=== PATIENT | female | born 1970 | race Caucasian/White ===

== ENCOUNTER 2020-01-14 06:56 | Day surgery (SDC) | payer OTHER ==
[~2020-01-14 06:56] MED LIST: Lidocaine 1%/Sod Bicarbonate in NS 8.4% 1 ML Syringe IDERM PRN; Sodium Chloride 0.9% 10 ML Syringe FLUSH PRN
[2020-01-14] MEDS ORDERED: Bupivacaine 0.5% 30 ML SDV ONE (07:10)
[2020-01-14] MEDS: Lactated Ringers 1,000 ML IV SCH ×2 (07:15→13:44)
[2020-01-14] MEDS ORDERED: Propofol 200 MG/20 ML SDV ONE ×2 (07:36→08:52)
[2020-01-14] MEDS ORDERED: fentaNYL 100 MCG/2 ML SDV ONE (07:37)
[2020-01-14] MEDS ORDERED: Midazolam 1 MG/ML 2 ML SDV ONE (07:37)
[2020-01-14] MEDS ORDERED: Lidocaine 1% 4 ML ONE (07:38)
--- NOTE | 2020-01-14 07:44 | PCM.OPNOTE ---
- General Post-Op/Procedure Note Date of Surgery/Procedure: 01/14/20 Operative Procedure(s): Laparoscopic assisted vaginal hysterectomy Findings: SVE with mobile uterus c/w 14 wk size. Intraabdominal evaluation with bulbous uterus c/w known fibroid. Normal appearance of the fallopian tubes and ovaries. Final weight of uterus 354 grams. Pre Op Diagnosis: Fibroid uterus. Irregular bleeding / discharge Post-Op Diagnosis: Same Anesthesia Technique: General ET Tube Primary Surgeon: Nelly Brambila Secondary Surgeon: Loren Galindo Anesthesia Provider: Madeline Higuera Reason Block Stacker Was Necessary: Speed, safety of procedure Pathology: Cervix, uterus, and fallopian tubes sent to pathology. Fluid Replacement, Intraop: 2,300 Output, Urine Amount: 400 EBL in mLs: 100 Complications: None Condition: Good Free Text/Narrative:: The risks, benefits, indications, potential complications, and alternatives were explained to the patient and informed consent obtained. The patient was taken to the Operating Room where general anesthesia was induced without complication. The patient was placed in dorsal lithotomy with Fab Stirrups and an exam under anesthesia revealed the findings detailed above. The patient was then prepped and draped in the usual sterile fashion. A sterile bivalve speculum was placed into the vagina and the anterior lip of the cervix was grasped with a single tooth tenaculum. IUD removed. Next a DOCUSYS uterine manipulator was placed to allow uterine manipulation throughout the procedure. The speculum and single tooth tenaculum were removed from the vagina. A Rodriguez catheter was placed in sterile fashion. Attention was then turned to the patients abdomen where a Veress needle was ca refully introduced into the peritoneal cavity while tenting the abdominal wall. Intraperitoneal placement was confirmed by free flow of saline into the abdomen from a syringe open to gravity and with a low intraabdominal pressure with insufflation of C02 gas on low flow. The gas was increased to high flow and a pneumoperitoneum was obtained with C02 gas to a pressure of 15 mm Hg. A 5 mm skin incision was made in a vertical fashion in the umbilical fold and a 5 mm blunt trocar was inserted into the abdomen with direct visualization of the laparoscope through the clear view trocar lens. 5 mm skin incisions were made in both the left and right lower quadrants approximately 10 cm lateral and 3 cm inferior to the umbilicus. 5 mm blunt trocars were inserted into the abdomen under direct visualization with care to avoid the abdominal wall vasculature. A blunt probe and grasper were inserted through the accessory ports and a survey of the abdomen revealed the findings detailed above. The right fallopian tube was elevated with the blunt graspers at the fimbriated end. The LigaSure was used to grasp, elevate, cauterize and transect the mesosalpingx from the fimbriated end toward the uterus to the level of the round ligament. The fallopian tube was then amputated with the Ligasure and removed through a 5 mm port. The round ligament on the right was then elevated, cauterized, and transected with the LigaSure. Hemostasis was noted. Next, the vesicouterine peritoneum was elevated gently with a blunt grasper and the LigaSure and blunt dissection were used dissect the vesicouterine peritoneum to make a bladder flap. Two more small bites along the right side of the uterus were made with the Ligasure to skeletonize the uterine artery. Hemostasis was noted. The exact same procedure was carried out on the left. The CO2 gas was turned off and the laparoscope was removed. Attention was then turned to the vaginal portion of the procedure. A short weighted speculum was placed in the vagina, and the cervix was grasped with a single tooth tenaculum. The cervix was injected circumferentially with about 15 cc of 1% lidocaine with dilute epinephrine. The cervix was then circumfere ntially incised with a scalpel. A Raytec was used to bluntly dissect the cervix circumferentially until an avascular plane was obtained. The posterior cul-de-sac was entered sharply without difficulty. A 0-Vicryl pop-off suture was placed at six o'clock to include the posterior vaginal mucosa and posterior peritoneum. This stitch was tagged with a straight clamp to help with vaginal cuff closure at the end of the case. The short weighted speculum was replaced by the long weighted speculum. The uterosacral ligaments were grasped on either side with the LigaSure, cauterized, and transected. Hemostasis was assured. The bladder was dissected off the pubovesical cervical fascia anteriorly with a sponge and blunt dissection. The anterior cul-de-sac was then entered sharply without difficulty. The cardinal ligaments were then serially clamped on both sides with the LigaSure, cauterized, and transected. The uterine arteries were then clamped, cauterized, and transected. The fundus and adnexa were confirmed to be free of any further peritoneal attachments and then were pulled out through the vagina. The posterior peritoneum was closed with a running, locked 0 Vicryl suture. The vaginal cuff was closed with two separate 0-Vicryl suture started at either apex and run towards the midline. An additional figure of eight suture was placed at right cuff angle to reapproximate the cuff further. Attention was then again turned to the abdomen. All members of the surgical team changed gloves. The laparoscope was again inserted and the abdomen was again insufflated with CO2. The pedicles were again visualized. Irrigation of the pedicles was performed. Bull seal was placed along the vaginal cuff. Hemostasis was confirmed. The patient was taken out of Trendelenberg position. The accessory trocars were removed under direct visualization. The pneumoperitoneum was allowed to escape. The umbilical trocar was removed and lastly the camera was removed from the abdomen under direct visualization to confirm no herniation into the port site. All skin incisions were re- approximated with 4-0 Monocryl and sealed with Dermabond. Hemostasis was noted. A total of 10 cc of 0.25% Marcaine was injected into the subcutaneous tissues surrounding the skin incisions for local anesthesia. All sponge, lap, needle, and instrument counts were correct x 2. The patient tolerated the procedure well and there were no complications.
--- NOTE | 2020-01-14 07:53 | PCM.PREANE ---
Preanesthetic Assessment - Procedure Proposed Procedure: laparoscopic assisted vaginal hysterectomy - Anesthesia/Transfusion/Family Hx Anesthesia History: Prior Anesthesia Reaction (long wake ups per patient, no other issues) Family History of Anesthesia Reaction: No Transfusion History: No Prior Transfusion(s) Intubation History: Unknown - Review of Systems General: No Symptoms Pulmonary: No Symptoms Cardiovascular: No Symptoms Gastrointestinal: No Symptoms Neurological: No Symptoms Other: Reports: Thyroid Problems, Depression, Anxiety - Physical Assessment NPO Status Date: 01/13/20 NPO Status Time: 21:00 Vital Signs: Last Vital Signs Temp 36.3 C 01/14/20 07:05 Pulse 79 01/14/20 07:05 Resp 16 01/14/20 07:05 BP 127/75 01/14/20 07:05 Pulse Ox 99 01/14/20 07:05 Height: 1.7 m Weight: 59.874 kg ASA Class: 2 Mental Status: Alert & Oriented x3 Airway Class: Mallampati = 1 Dentition: Reports: Normal Dentition Thyro-Mental Finger Breadths: 3 Mouth Opening Finger Breadths: 4 ROM/Head Extension: Full Lungs: Clear to Auscultation, Normal Respiratory Effort Cardiovascular: Regular Rate, Regular Rhythm - Lab Values: Laboratory Last Values WBC 6.27 K/mm3 (3.98-10.04) 01/14/20 07:15 RBC 4.84 M/mm3 (3.98-5.22) 01/14/20 07:15 Hgb 14.9 gm/dl (11.2-15.7) 01/14/20 07:15 Hct 44.7 % (34.1-44.9) 01/14/20 07:15 MCV 92.4 fl (79.4-94.8) D 01/14/20 07:15 MCH 30.8 pg (25.6-32.2) 01/14/20 07:15 MCHC 33.3 g/dl (32.2-35.5) 01/14/20 07:15 RDW Std Deviation 42.6 fL (36.4-46.3) 01/14/20 07:15 Plt Count 205 K/mm3 (182-369) 01/14/20 07:15 MPV 12.0 fl (9.4-12.3) 01/14/20 07:15 Neut % (Auto) 62.4 % (34.0-71.1) 01/14/20 07:15 Lymph % (Auto) 24.9 % (19.3-51.7) 01/14/20 07:15 [place] % (Auto) 8.8 % (4.7-12.5) 01/14/20 07:15 Eos % (Auto) 3.0 (0.7-5.8) 01/14/20 07:15 Baso % (Auto) 0.6 % (0.1-1.2) 01/14/20 07:15 Neut # (Auto) 3.91 K/mm3 (1.56-6.13) 01/14/20 07:15 Lymph # (Auto) 1.56 K/mm3 (1.18-3.74) 01/14/20 07:15 [place] # (Auto) 0.55 K/mm3 (0.24-0.36) H 01/14/20 07:15 Eos # (Auto) 0.19 K/mm3 (0.04-0.36) 01/14/20 07:15 Baso # (Auto) 0.04 K/mm3 (0.01-0.08) 01/14/20 07:15 Sodium 138 mEq/L (136-145) 01/14/20 07:15 Potassium 3.8 mEq/L (3.5-5.1) 01/14/20 07:15 Chloride 103 mEq/L (98-107) 01/14/20 07:15 Carbon Dioxide 26 mEq/L (21-32) 01/14/20 07:15 Anion Gap 12.8 (5-15) 01/14/20 07:15 BUN 17 mg/dL (7-18) 01/14/20 07:15 Creatinine 1.0 mg/dL (0.55-1.02) 01/14/20 07:15 Est Cr Clr Drug Dosing 65.03 mL/min 01/14/20 07:15 Estimated GFR (MDRD) 59 mL/min (>60) 01/14/20 07:15 BUN/Creatinine Ratio 17.0 (14-18) 01/14/20 07:15 Glucose 98 mg/dL (74-106) 01/14/20 07:15 Calcium 9.4 mg/dL (8.5-10.1) 01/14/20 07:15 Urine HCG, Qual Negative (NEGATIVE) 01/14/20 07:05 - Allergies Allergies/Adverse Reactions: Allergies Allergy/AdvReac Type Severity Reaction Status Date / Time No Known Allergies Allergy Verified 01/12/20 16:12 - Blood Blood Available: No - Anesthesia Plan Pre-Op Medication Ordered: None - Acknowledgements Anesthesia Type Planned: General Anesthesia Pt an Appropriate Candidate for the Planned Anesthesia: Yes Alternatives and Risks of Anesthesia Discussed w Pt/Guardian: Yes Pt/Guardian Understands and Agrees with Anesthesia Plan: Yes PreAnesthesia Questionnaire HEENT History: Reports: Impaired Vision Cardiovascular History: Reports: None Respiratory History: Reports: None Gastrointestinal History: Reports: None Genitourinary History: Reports: None DU[employer] L[employer] HELPER History: Reports: , Other (See Below) Other OB/BYN History: fibroid uterus Musculoskeletal History: Reports: None Neurological History: Reports: Migraines, Other (See Below) Other Neuro History: hand tremor Psychiatric History: Reports: Anxiety, Depression Endocrine/Metabolic History: Reports: Other (See Below) Other Endocrine/Metabolic History: thyroid disease Hematologic History: Reports: None Immunologic History: Reports: None Oncologic (Cancer) History: Reports: None Dermatologic History: Reports: None - Past Surgical History Head Surgeries/Procedures: Reports: None HEENT Surgical History: Reports: Tonsillectomy Cardiovascular Surgical History: Reports: None Respiratory Surgical History: Reports: None GI Surgical History: Reports: Cholecystectomy, Colonoscopy Female Surgical History: Reports: None Male Surgical History: Reports: None Neurological Surgical History: Reports: None Musculoskeletal Surgical History: Reports: None Oncologic Surgical History: Reports: None Dermatological Surgical History: Reports: None - SUBSTANCE USE Smoking Status *Q: Never Smoker Recreational Drug Use History: No - HOME MEDS Home Medications: Home Meds Ascorbic Acid [Vitamin C] 1,000 mg PO DAILY 01/12/20 [History] Calcium Carb/Vitamin D3/Vit K1 [Calcium + D Soft Chewable Tab] 1 tab PO DAILY 01/12/20 [History] Cyanocobalamin (Vitamin B-12) [Vitamin B-12] 1,000 mcg PO DAILY 01/12/20 [History] Fish Oil/[place]-3 Fatty Acids [Fish Oil 1,000 MG] 1 gm PO DAILY 01/12/20 [History] Lactobacillus Combination No.4 [Probiotic] 1 cap PO DAILY 01/12/20 [History] Multivitamin 1 tab PO DAILY 01/12/20 [History] Selenomethionine [Selenium] 200 mcg PO DAILY 01/12/20 [History] Sertraline HCl [Zoloft] 50 mg PO DAILY 01/12/20 [History] amLODIPine [Norvasc] 2.5 mg PO DAILY PRN 01/12/20 [History] levonorgestreL [Mirena] 1 device VAG ASDIRECTED 01/12/20 [History] traZODone HCl [Trazodone HCl] 100 mg PO BEDTIME 01/12/20 [History] - CURRENT (IN HOUSE) MEDS Current Meds: Current Medications Lactated Ringer's (Ringers, Lactated) 1,000 mls @ 125 mls/hr IV ASDIRECTED TEODORA Stop: 01/14/20 23:00 Last Admin: 01/14/20 07:15 Dose: 125 mls/hr Documented by: Lidocaine/Sodium Bicarbonate (Buffered Lidocaine 1% In Ns 8.4%) 0.25 ml IDERM ONETIME PRN PRN Reason: Prior to IV Start Stop: 01/14/20 18:00 Last Admin: 01/14/20 07:14 Dose: 0.25 ml Documented by: Sodium Chloride (Saline Flush) 10 ml FLUSH ASDIRECTED PRN PRN Reason: Keep Vein Open Stop: 01/14/20 18:00 Discontinued Medications Bupivacaine HCl (Marcaine 0.5%) Confirm Administered Dose 30 ml .ROUTE .STK-MED ONE Stop: 01/14/20 07:11 Fentanyl (Sublimaze) Confirm Administered Dose 100 mcg .ROUTE .STK-MED ONE Stop: 01/14/20 07:38 Lidocaine HCl (Xylocaine-Mpf 1%) Confirm Administered Dose 4 mls @ as directed .ROUTE .STK-MED ONE Stop: 01/14/20 07:39 Lidocaine/Epinephrine (Xylocaine 1% With Epinephrine 1:100,000) Confirm Administered Dose 20 ml .ROUTE .STK-MED ONE Stop: 01/14/20 07:11 Midazolam HCl (Versed 1 Mg/Ml) Confirm Administered Dose 2 mg .ROUTE .STK-MED ONE Stop: 01/14/20 07:38 Propofol (Diprivan 20 Ml) Confirm Administered Dose 400 mg .ROUTE .STK-MED ONE Stop: 01/14/20 07:37
[2020-01-14] MEDS ORDERED: Ondansetron 4 MG/2 ML SDV ONE (08:12)
[2020-01-14] MEDS ORDERED: Dexamethasone 4 MG/ML 5 ML MDV ONE (08:12)
[2020-01-14] MEDS ORDERED: ceFAZolin 1 GM Vial ONE (08:17)
[2020-01-14] MEDS ORDERED: HYDROmorphone 0.5 MG/0.5 ML Syringe ONE ×2 (08:31→09:03)
[2020-01-14] MEDS ORDERED: Ketamine 500 mg/10 ML MDV ONE (08:33)
[2020-01-14] MEDS: Lidocaine 1% with EPINEPHrine 1:100,000 20 ML MDV ONE ×2 (08:43→08:59)
[2020-01-14] MEDS ORDERED: Lactated Ringers 1,000 ML ONE ×2 (09:12→09:46)
[2020-01-14] MEDS ORDERED: ePHEDrine Sulfate/0.9% NaCl/Pf 25 MG/5 ML SYRINGE IV ONE (09:44)
[2020-01-14] MEDS ORDERED: fentaNYL 100 MCG/2 ML SDV IVPUSH PRN (10:36)
[2020-01-14] MEDS ORDERED: Ondansetron 4 MG/2 ML SDV IVPUSH PRN (10:36)
[2020-01-14] MEDS ORDERED: diphenhydrAMINE 50 MG/ML SDV IVPUSH PRN (10:36)
[2020-01-14] MEDS ORDERED: Ketorolac 30 MG/ML SDV IVPUSH SCH (10:45)
--- NOTE | 2020-01-14 10:45 | PCM.POSTAN ---
POST ANESTHESIA ASSESSMENT - MENTAL STATUS Mental Status: Somnolent - VITAL SIGNS Vital Signs: Last Vital Signs Temp 36.4 C 01/14/20 10:33 Pulse 60 01/14/20 10:33 Resp 17 01/14/20 10:33 BP 117/64 01/14/20 10:33 Pulse Ox 100 01/14/20 10:33 - RESPIRATORY Respiratory Status: Respiratory Rate WNL, Airway Patent, O2 Saturation Stable - CARDIOVASCULAR CV Status: Blood Pressure Stable, Slow Pulse Rate - GASTROINTESTINAL GI Status: No Symptoms - PAIN Pain Score: 0 - POST OP HYDRATION Hydration Status: Adequate & Stable
--- NOTE | 2020-01-14 11:30 | PCM48HPAN ---
Post Anesthesia Note - EVALUATION WITHIN 48HRS OF ANESTHETIC Vital Signs in Normal Range: Yes Patient Participated in Evaluation: Yes Respiratory Function Stable: Yes Airway Patent: Yes Cardiovascular Function Stable: Yes Hydration Status Stable: Yes Pain Control Satisfactory: Yes Nausea and Vomiting Control Satisfactory: Yes Mental Status Recovered: Yes Vital Signs: Last Vital Signs Temp 36.6 C 01/14/20 11:20 Pulse 64 01/14/20 11:20 Resp 20 01/14/20 11:20 BP 113/71 01/14/20 11:20 Pulse Ox 98 01/14/20 11:20
== END 2020-01-14 14:55 | disposition home or self-care (01) ==
LOC: JD.SDS 06:56
PROVIDERS: ATTEND Obstetrics & Gynecology
DX: D25.1 Intramural leiomyoma of uterus (principal); N80.0 Endometriosis of uterus; F41.9 Anxiety disorder, unspecified; F32.9 Major depressive disorder, single episode, unspecified; Z01.812 Encounter for preprocedural laboratory examination; Z20.828 Contact with and (suspected) exposure to other viral communicable diseases; Z79.899 Other long term (current) drug therapy
CPT/HCPCS: 36415; 58573; 80048; 81025; 85025; 86850; 86900; 86901; 87635; J0171; J0690; J1100; J1170; J1885; J2001; J2250; J2405; J2704; J2710; J3010; J3490; J7120; 00944; U0002